=== PATIENT | female | born 1995 | race African-American/Black ===

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

== ENCOUNTER 2018-07-14 00:35 | Emergency (ER) | payer SELFPAY ==
[~2018-07-14] VITALS: Ht 162.6 cm; Wt 78.5 kg
[~2018-07-14 00:35] MED LIST: PRED20TA PO
[2018-07-14 00:42] VITALS: BP 117/66
== END 2018-07-14 01:18 ==
LOC: ER 00:35
DX: O20.8 Other hemorrhage in early pregnancy (principal); Z3A.00 Weeks of gestation of pregnancy not specified; Z53.21 Procedure and treatment not carried out due to patient leaving prior to being seen by health care provider